=== PATIENT | male | born 1950 | race Caucasian/White ===

== ENCOUNTER → 2020-08-16 14:15 | Outpatient (BNVA) | payer MEDICARE, SELFPAY | PROVIDERS: PCP Nurse Practitioner Family; Visit Provider Surgery Vascular Surgery | DX: I83.12 Varicose veins of left lower extremity with inflammation (principal) | CPT/HCPCS: 99202 ==

== ENCOUNTER 2020-08-24 10:21 | Outpatient (REF) | payer MEDICARE, SELFPAY ==
--- NOTE | ~2020-08-24 | US_ITS ---
EXAMINATION: RIGHT and LEFT LOWER EXTREMITY VENOUS ULTRASOUND (Reflux Exam) CLINICAL INDICATION: Varicose veins left lower extremity with inflammation. COMPARISON: None. TECHNIQUE: Color flow triplex imaging and compression Doppler was performed to evaluate both the deep and the superficial systems bilaterally. To evaluate the superficial system, the examination was performed in the upright position. Color-flow Doppler ultrasound and compression ultrasound were utilized. In addition, maneuvers were utilized to demonstrate reflux. FINDINGS: 1. DEEP VENOUS ULTRASOUND OF THE RIGHT LOWER EXTREMITY: Respiratory variation, normal compression and augmented flow are noted in the right common femoral vein as well as the right popliteal vein and there is no evidence of deep venous thrombosis at these locations. There is no evidence of reflux in the deep system in either the common femoral vein or the popliteal vein. There is no evidence of a popliteal fossa cyst or popliteal artery aneurysm. 2. SUPERFICIAL ULTRASOUND WITH DOPPLER OF RIGHT LOWER EXTREMITY: The right great saphenous vein at the saphenofemoral junction measures 12 mm without reflux, proximal thigh 4 mm with reflux of greater than 2 seconds,, at the mid thigh 3 mm without reflux, [id number] 4 mm without reflux, [id number] 3 mm with reflux of one half second, at mid calf 3 mm without reflux, and at the ankle measures 3 mm without reflux. There is a mid calf heat treater without insufficiency. Varicosities below the knee measuring 4 mm in diameter. Reflux up to 1.5 seconds. The right small saphenous vein measures 3 mm and shows no reflux. 3. DEEP VENOUS ULTRASOUND OF THE LEFT LOWER EXTREMITY: Respiratory variation, normal compression and augmented flow are noted in the left common femoral vein as well as the left popliteal vein and there is no evidence of deep venous thrombosis at these locations. There is no evidence of reflux in the deep system in either the common femoral vein or the popliteal vein. . There is no evidence of a Jaime's cyst. 4. SUPERFICIAL ULTRASOUND WITH DOPPLER OF LEFT LOWER EXTREMITY: Left great saphenous vein at the saphenofemoral junction measures 7 mm, at the mid thigh 13 mm, [id number] 4 mm, [id number] 9 mm, at mid calf 4 mm and at the ankle measures 4 mm. There is venous insufficiency seen throughout the greater saphenous vein with insufficiency of greater than 1 second at the saphenofemoral junction, greater than 2 seconds at the level of the knee, and approximately 2.5 seconds at the ankle. The left small saphenous vein measures 3 mm and shows no reflux. There is thrombophlebitis noted about the left small saphenous vein proximally. There is a heat treater below the knee measuring 2 mm in diameter with reflux time of approximately 0.8 seconds. Varicosities are noted within the mid and distal thigh as well as at the knee and below the knee with insufficiency seen from distal thigh to below the knee of up to 3 seconds in duration. US/US venous duplex LE BI IMPRESSION: No evidence of acute deep venous thrombosis of either lower extremity. Right greater saphenous vein insufficiency at the level of the proximal thigh of approximately 2 seconds duration's without reflux seen at the saphenofemoral junction. Greater saphenous vein insufficiency throughout the left lower extremity from saphenofemoral junction to the ankle.
== END 2020-08-24 10:22 | disposition home or self-care (01) ==
LOC: HO.US 10:21
PROVIDERS: PCP Internal Medicine; Visit Provider Surgery Vascular Surgery
DX: I83.12 Varicose veins of left lower extremity with inflammation (principal); I83.893 Varicose veins of bilateral lower extremities with other complications
CPT/HCPCS: 93970

== ENCOUNTER → 2020-09-06 14:39 | Outpatient (BNVA) | payer MEDICARE, SELFPAY | PROVIDERS: PCP Internal Medicine; Visit Provider Surgery Vascular Surgery | DX: I83.12 Varicose veins of left lower extremity with inflammation (principal) | CPT/HCPCS: 99212 ==

== ENCOUNTER → 2020-09-23 07:32 | Outpatient (BNVA) | payer MEDICARE, SELFPAY | PROVIDERS: PCP Internal Medicine; Visit Provider Surgery Vascular Surgery | DX: I83.12 Varicose veins of left lower extremity with inflammation (principal) | CPT/HCPCS: 36482 ==

== ENCOUNTER 2020-09-26 16:16 | Outpatient (REF) | payer MEDICARE, SELFPAY ==
--- NOTE | ~2020-09-26 | US_ITS ---
EXAMINATION: US VENOUS ULTRASOUND WITH DOPPLER LOWER EXTREMITY, LEFT CLINICAL INFORMATION: Post left leg vena seal. Pain. Rule out DVT. COMPARISON: Previous exam 08/24/2020 TECHNIQUE: Ultrasound of the deep veins is performed from the hip to the calf with compression sonography and color and pulse Doppler assessment. Spectral analysis with color-flow imaging is performed. FINDINGS: There is normal venous compression and respiratory variation and augmented flow. The visualized common femoral vein, superficial femoral vein, profunda femoral vein, popliteal vein, and the trifurcation region shows no evidence of deep venous thrombosis. There is echogenic material seen in the left greater saphenous vein post vena seal procedure. This is 1.5 cm from the saphenofemoral junction. The left greater saphenous vein appears closed. US/US venous duplex LE LT IMPRESSION: No DVT demonstrated in the left lower extremity.
== END 2020-09-26 16:17 | disposition home or self-care (01) ==
LOC: HO.US 16:16
PROVIDERS: Visit Provider Surgery Vascular Surgery
DX: M79.605 Pain in left leg (principal); Z98.890 Other specified postprocedural states
CPT/HCPCS: 93971

== ENCOUNTER → 2020-10-06 14:20 | Outpatient (BNVA) | payer MEDICARE, SELFPAY | PROVIDERS: PCP Internal Medicine; Visit Provider Surgery Vascular Surgery | DX: I83.12 Varicose veins of left lower extremity with inflammation (principal) | CPT/HCPCS: Q3014 ==

== ENCOUNTER → 2021-01-17 13:02 | Outpatient (BNVA) | payer MEDICARE, SELFPAY | PROVIDERS: PCP Internal Medicine; Visit Provider Surgery Vascular Surgery | DX: I83.11 Varicose veins of right lower extremity with inflammation (principal); I83.12 Varicose veins of left lower extremity with inflammation | CPT/HCPCS: 99212 ==